=== PATIENT | female | born 1990 | race Caucasian/White ===

== ENCOUNTER 2017-11-25 10:03 | Emergency (ER) | payer OTHER ==
[2017-11-25 10:22] VITALS: RESP 18
[2017-11-25] MEDS ORDERED: SODIUM CHLORIDE 0.9% 1,000 ML IV ONE (11:12)
[2017-11-25 11:39] LABS: Basophils % (A) 0 %; Eosinophils % (A) 2 %; HCT 42.8 % (34.0-46.0); HGB 14.1 gm/dL (11.4-16.0); Lymphocytes % (A) 18 %; MCH 29.2 pg (25.0-35.0); MCHC 32.9 g/dL (31.0-37.0); MCV 88.7 fL (80.0-100.0); Monocytes % (A) 5 %; Neutrophils % (A) 75 %; Platelet Count 268 k/uL (150-450); RBC 4.82 m/uL (3.80-5.40); RDW 13.1 % (11.5-15.5); WBC 10.3 k/uL (3.8-10.6)
[2017-11-25 11:40] LABS: Eosinophils # (A) 0.2 k/uL (0-0.7); Lymphocytes # (A) 1.9 k/uL (1.0-4.8); Monocytes # (A) 0.5 k/uL (0-1.0); Neutrophils # (A) 7.7 k/uL (1.3-7.7)
[2017-11-25 11:53] LABS: ALT 26 U/L (9-52); AST 16 U/L (14-36); Albumin 3.5 g/dL (3.5-5.0); Alkaline Phosphatase 58 U/L (38-126); Anion Gap 7 mmol/L; Blood Urea Nitrogen 6 mg/dL (7-17); Calcium 8.8 mg/dL (8.4-10.2); Carbon Dioxide 20 mmol/L (22-30); Chloride 111 mmol/L (98-107); Glucose 78 mg/dL (74-99); Potassium 4.1 mmol/L (3.5-5.1); Sodium 138 mmol/L (137-145); Total Bilirubin 0.3 mg/dL (0.2-1.3); Total Protein 6.5 g/dL (6.3-8.2)
[2017-11-25 12:01] LABS: INR 0.9 (<1.2); Partial Thromboplastin Time 23.1 sec (22.0-30.0); Prothrombin Time 9.4 sec (9.0-12.0)
--- NOTE | 2017-11-25 12:10 | ED ---
Female Urogenital HPI - General Chief complaint: Vaginal Bleeding Stated complaint: Vaginal Bleeding-14 wks preg Time Seen by Provider: 11/25/17 10:52 Source: patient, RN notes reviewed, old records reviewed Mode of arrival: ambulatory Limitations: no limitations - History of Present Illness Initial comments: Patient is a 19-year-old feel since emergency department today with chief complaint of vaginal bleeding today. Patient reports that she had heavy bleeding and tetralogy woke up. She states she had some minor spotting afterwards. Patient reports that she has a high-risk at this time. Similarly 14 weeks . HYDRAULIC DREDGE OPERATOR is Dr. Day. - Related Data Home Medications Medication Instructions Recorded Confirmed Metoprolol Succinate (ER) [Toprol 50 mg PO HS 11/25/17 11/25/17 Xl] Gck-Shwz-Hdhko Acid 1 cap PO DAILY 11/25/17 11/25/17 [-U Capsule (formulary)] Allergies Allergy/AdvReac Type Severity Reaction Status Date / Time Penicillins AdvReac Rash/Hives Verified 11/25/17 10:28 Sulfa (Sulfonamide AdvReac Rash/Hives Verified 11/25/17 10:28 Antibiotics) Review of Systems ROS Statement: Those systems with pertinent positive or pertinent negative responses have been documented in the HPI. ROS Other: All systems not noted in ROS Statement are negative. Past Medical History Past Medical History: Hypertension History of Any Multi-Drug Resistant Organisms: None Reported Past Surgical History: No Surgical Hx Reported Past Psychological History: Anxiety Smoking Status: Current every day smoker Past Alcohol Use History: None Reported Past Drug Use History: None Reported General Exam - General Exam Comments Initial Comments: This is a 27-year-old female. Alert and oriented.Distress. Limitations: no limitations General appearance: alert, in no apparent distress Head exam: Present: atraumatic, normocephalic, normal inspection Eye exam: Present: normal appearance, PERRL, EOMI. Absent: scleral icterus, conjunctival injection, periorbital swelling ENT exam: Present: normal exam, mucous membranes moist Neck exam: Present: normal inspection. Absent: tenderness, meningismus, lymphadenopathy Respiratory exam: Present: normal lung sounds bilaterally. Absent: respiratory distress, wheezes, rales, rhonchi, stridor Cardiovascular Exam: Present: regular rate, normal rhythm, normal heart sounds. Absent: systolic murmur, diastolic murmur, rubs, gallop, clicks GI/Abdominal exam: Present: soft, normal bowel sounds. Absent: distended, tenderness, guarding, rebound, rigid External exam: Present: normal external exam Speculum exam: Present: normal speculum exam. Absent: erythema, vaginal discharge, cervical discharge, vaginal bleeding By manual exam: Present: normal by manual exam. Absent: cervical motion tenderness, adnexal tenderness Extremities exam: Present: normal inspection, full ROM, normal capillary refill. Absent: tenderness, pedal edema, joint swelling, calf tenderness Back exam: Present: normal inspection Neurological exam: Present: alert, oriented X3, CN II-XII intact Psychiatric exam: Present: normal affect, normal mood Course Vital Signs 11/25/17 11/25/17 10:20 14:09 Temperature 98.3 F 97.9 F Pulse Rate 91 61 Respiratory 18 18 Rate Blood Pressure 161/92 143/74 O2 Sat by Pulse 99 99 Oximetry Medical Decision Making - Medical Decision Making 19-year-old female presents today at 14 weeks chief complaint of vaginal bleeding today. Pelvic exam shows no significant bleeding at this time. Rh factor is positive. Ultrasound does show positive IUP measuring 15 weeks. Heart rate 142. No evidence of demise. No evidence of subchorionic bleed or hemorrhage. Unsure of where patient's bleeding could've came from. Again she has no bleeding at this time. We did discuss case with on -call HYDRAULIC DREDGE OPERATOR Dr. Story. SHe recommended follow-up with them in the office. Discussed return parameters. Patient understands treatment plan will comply. Return parameters were discussed. - Lab Data Result diagrams: 11/25/17 11:30 11/25/17 11:30 Lab Results 11/25/17 11/25/17 11/25/17 Range/Units 11:30 11:30 11:30 WBC 10.3 (3.8-10.6) k/uL RBC 4.82 (3.80-5.40) m/uL Hgb 14.1 (11.4-16.0) gm/dL Hct 42.8 (34.0-46.0) % MCV 88.7 (80.0-100.0) fL MCH 29.2 (25.0-35.0) pg MCHC 32.9 (31.0-37.0) g/dL RDW 13.1 (11.5-15.5) % Plt Count 268 (150-450) k/uL Neutrophils % 75 % Lymphocytes % 18 % Monocytes % 5 % Eosinophils % 2 % Basophils % 0 % Neutrophils # 7.7 (1.3-7.7) k/uL Lymphocytes # 1.9 (1.0-4.8) k/uL Monocytes # 0.5 (0-1.0) k/uL Eosinophils # 0.2 (0-0.7) k/uL Basophils # 0.0 (0-0.2) k/uL PT (9.0-12.0) sec INR (<1.2) APTT (22.0-30.0) sec Sodium 138 (137-145) mmol/L Potassium 4.1 (3.5-5.1) mmol/L Chloride 111 H (98-107) mmol/L Carbon Dioxide 20 L (22-30) mmol/L Anion Gap 7 mmol/L BUN 6 L (7-17) mg/dL Creatinine 0.50 L (0.52-1.04) mg/dL Est GFR (CKD-EPI)AfAm >90 (>60 ml/min/1.73 sqM) Est GFR (CKD-EPI)NonAf >90 (>60 ml/min/1.73 sqM) Glucose 78 (74-99) mg/dL Calcium 8.8 (8.4-10.2) mg/dL Total Bilirubin 0.3 (0.2-1.3) mg/dL AST 16 (14-36) U/L ALT 26 (9-52) U/L Alkaline Phosphatase 58 (38-126) U/L Total Protein 6.5 (6.3-8.2) g/dL Albumin 3.5 (3.5-5.0) g/dL HCG, Quant 12797.4 mIU/mL Urine Color Urine Appearance (Clear) Urine pH (5.0-8.0) Ur Specific [place] (1.001-1.035) Urine Protein (Negative) Urine Glucose (UA) (Negative) Urine Ketones (Negative) Urine Blood (Negative) Urine Nitrite (Negative) Urine Bilirubin (Negative) Urine Urobilinogen (<2.0) mg/dL Ur Leukocyte Esterase (Negative) Urine HCG, Qual (Not Detectd) Trichomonas Ag (Rapid) (Negative) Blood Type A Positive Blood Type Recheck No 11/25/17 11/25/17 11/25/17 Range/Units 11:30 13:18 13:18 WBC (3.8-10.6) k/uL RBC (3.80-5.40) m/uL Hgb (11.4-16.0) gm/dL Hct (34.0-46.0) % MCV (80.0-100.0) fL MCH (25.0-35.0) pg MCHC (31.0-37.0) g/dL RDW (11.5-15.5) % Plt Count (150-450) k/uL Neutrophils % % Lymphocytes % % Monocytes % % Eosinophils % % Basophils % % Neutrophils # (1.3-7.7) k/uL Lymphocytes # (1.0-4.8) k/uL Monocytes # (0-1.0) k/uL Eosinophils # (0-0.7) k/uL Basophils # (0-0.2) k/uL PT 9.4 (9.0-12.0) sec INR 0.9 (<1.2) APTT 23.1 (22.0-30.0) sec Sodium (137-145) mmol/L Potassium (3.5-5.1) mmol/L Chloride (98-107) mmol/L Carbon Dioxide (22-30) mmol/L Anion Gap mmol/L BUN (7-17) mg/dL Creatinine (0.52-1.04) mg/dL Est GFR (CKD-EPI)AfAm (>60 ml/min/1.73 sqM) Est GFR (CKD-EPI)NonAf (>60 ml/min/1.73 sqM) Glucose (74-99) mg/dL Calcium (8.4-10.2) mg/dL Total Bilirubin (0.2-1.3) mg/dL AST (14-36) U/L ALT (9-52) U/L Alkaline Phosphatase (38-126) U/L Total Protein (6.3-8.2) g/dL Albumin (3.5-5.0) g/dL HCG, Quant mIU/mL Urine Color Urine Appearance (Clear) Urine pH (5.0-8.0) Ur Specific [place] (1.001-1.035) Urine Protein (Negative) Urine Glucose (UA) (Negative) Urine Ketones (Negative) Urine Blood (Negative) Urine Nitrite (Negative) Urine Bilirubin (Negative) Urine Urobilinogen (<2.0) mg/dL Ur Leukocyte Esterase (Negative) Urine HCG, Qual Detected (Not Detectd) Trichomonas Ag (Rapid) Negative (Negative) Blood Type Blood Type Recheck 11/25/17 Range/Units 13:18 WBC (3.8-10.6) k/uL RBC (3.80-5.40) m/uL Hgb (11.4-16.0) gm/dL Hct (34.0-46.0) % MCV (80.0-100.0) fL MCH (25.0-35.0) pg MCHC (31.0-37.0) g/dL RDW (11.5-15.5) % Plt Count (150-450) k/uL Neutrophils % % Lymphocytes % % Monocytes % % Eosinophils % % Basophils % % Neutrophils # (1.3-7.7) k/uL Lymphocytes # (1.0-4.8) k/uL Monocytes # (0-1.0) k/uL Eosinophils # (0-0.7) k/uL Basophils # (0-0.2) k/uL PT (9.0-12.0) sec INR (<1.2) APTT (22.0-30.0) sec Sodium (137-145) mmol/L Potassium (3.5-5.1) mmol/L Chloride (98-107) mmol/L Carbon Dioxide (22-30) mmol/L Anion Gap mmol/L BUN (7-17) mg/dL Creatinine (0.52-1.04) mg/dL Est GFR (CKD-EPI)AfAm (>60 ml/min/1.73 sqM) Est GFR (CKD-EPI)NonAf (>60 ml/min/1.73 sqM) Glucose (74-99) mg/dL Calcium (8.4-10.2) mg/dL Total Bilirubin (0.2-1.3) mg/dL AST (14-36) U/L ALT (9-52) U/L Alkaline Phosphatase (38-126) U/L Total Protein (6.3-8.2) g/dL Albumin (3.5-5.0) g/dL HCG, Quant mIU/mL Urine Color Colorless Urine Appearance Clear (Clear) Urine pH 7.0 (5.0-8.0) Ur Specific [place] 1.005 (1.001-1.035) Urine Protein Negative (Negative) Urine Glucose (UA) Negative (Negative) Urine Ketones Negative (Negative) Urine Blood Negative (Negative) Urine Nitrite Negative (Negative) Urine Bilirubin Negative (Negative) Urine Urobilinogen <2.0 (<2.0) mg/dL Ur Leukocyte Esterase Negative (Negative) Urine HCG, Qual (Not Detectd) Trichomonas Ag (Rapid) (Negative) Blood Type Blood Type Recheck - Radiology Data Radiology results: report reviewed ultrasound shows a single IUP measuring 15 weeks and 0 days. Heart rate of 142. Estimated delivery date is 05/19/2018. No evidence of subchorionic hemorrhage or bleeding. Disposition Clinical Impression: Abnormal vaginal bleeding, 15 weeks gestation of Disposition: HOME SELF-CARE Condition: Good Instructions: Placenta Previa (ED) Additional Instructions: Patient is follow-up with Dr. Day on Tuesday. Return to the emergency department if any alarming signs or symptoms occur. Patient should have no heavy lifting. Pelvic rest. Return to emergency department if any alarming signs or symptoms occur. Is patient prescribed a controlled substance at d/c from ED?: No Referrals: None,Stated [Primary Care Provider] - 1-2 days Wicho Kruger DO [Doctor of Osteopathic Medicine] - 1-2 days Time of Disposition: 13:51
[2017-11-25 12:47] LABS: HCG,Quantitative Serum 27318.4 mIU/mL
--- NOTE | 2017-11-25 13:03 | US ---
EXAMINATION TYPE: US OB >= 14 wk fetus DATE OF EXAM: 11/25/2017 COMPARISON: None CLINICAL HISTORY: PainBleeding and cramping x 1 day, 5, para 4 TECHNIQUE: Transabdominal (TA) GESTATIONAL AGE / DATING Physician Established: (14 weeks/2 days) EDC: 05/24/2018 Dates by LMP: (14 weeks/2 days) EDC: 05/24/2018 Dates by First Scan: No previous here Dates by Current Scan: (15 weeks/0 days) EDC: 05/19/2018 SURVEY IUP: Single PLACENTA: Fundal PREVIA: No Previa WOJCIECH: 12.4 cm Normal CERVICAL LENGTH (transabdominal: norm > 3.0cm): 3.5 cm BIOMETRY PRESENTATION: Breech LIE: Transverse with head maternal Left BPD: 2.7 cm 14 weeks / 6 days HC: 9.8 cm 14 weeks / 4 days AC: 8.8 cm 15 weeks / 0 days FL: 1.5 cm 14 weeks / 3 days ESTIMATED WEIGHT IN GRAMS: 105.1 grams ESTIMATED WEIGHT IN LBS/OZ: 0 lbs. 4 oz. WEIGHT PERCENTAGE BASED ON ESTABLISHED DATES: 68% HC/AC: 1.11 Normal FL/AC: 17.11 HEART RATE: 142 bpm RHYTHM: Normal MATERNAL WALL MEASUREMENT: 5.7 cm from skin to anterior uterine wall (if exam limited due to body hab itus). Viable single IUP measuring 15 weeks 0 days with a heart rate of 142bpm and an estimated delivery kaylee e of 05/19/2018. IMPRESSION: Single viable intrauterine .
[2017-11-25 13:40] LABS: Appearance,Urine Clear (Clear); Bilirubin,Urine Negative (Negative); Blood,Urine Negative (Negative); Color,Urine Colorless; Glucose,Urine (UA) Negative (Negative); Ketones,Urine Negative (Negative); Leukocyte Esterase,Urine Negative (Negative); Nitrite,Urine Negative (Negative); Protein,Urine Negative (Negative); Specific Gravity,Urine 1.005 (1.001-1.035); Urobilinogen,Urine <2.0 mg/dL (<2.0)
[2017-11-25 14:10] VITALS: BP 143/74; PULSE 61; TEMP 97.9
[2017-11-26 14:39] LABS: C. trachomatis,PCR Negative (Neg,Equiv); Chlamydia trachomatis Source Vagina; N. gonorrhoeae,PCR Negative (Neg,Equiv); Neisseria Source Vagina
== END 2017-11-25 14:10 | disposition home or self-care (01) ==
LOC: EC 10:03
DX: O20.9 Hemorrhage in early pregnancy, unspecified (principal); I10 Essential (primary) hypertension; F17.200 Nicotine dependence, unspecified, uncomplicated; Z3A.15 15 weeks gestation of pregnancy; Z67.10 Type A blood, Rh positive; Z79.899 Other long term (current) drug therapy; Z88.0 Allergy status to penicillin; Z88.2 Allergy status to sulfonamides
CPT/HCPCS: 36415; 76805; 80053; 81003; 81025; 84702; 85025; 85610; 85730; 86900; 86901; 87070; 87205; 87491; 87591; 87808; 96360; 96361; 99284

== ENCOUNTER → 2017-12-30 | Outpatient (CLI) | payer OTHER | LOC: LABWHC1 09:49 | PROVIDERS: ATTEND Obstetrics & Gynecology Maternal & Fetal Medicine | DX: Z34.81 Encounter for supervision of other normal pregnancy, first trimester (principal); Z3A.00 Weeks of gestation of pregnancy not specified | CPT/HCPCS: 36415; 82105; 82677; 84702; 86336 ==

== ENCOUNTER 2018-03-20 12:52 | Outpatient (CLI) | payer OTHER ==
[2018-03-20 13:34] LABS: Creatinine,Urine Random 82.7 mg/dL
[2018-03-20 14:28] LABS: Appearance,Urine Clear (Clear); Bilirubin,Urine Negative (Negative); Blood,Urine Negative (Negative); Color,Urine Yellow; Glucose,Urine (UA) Negative (Negative); Ketones,Urine 1+ (Negative); Leukocyte Esterase,Urine Small (Negative); Mucus,Urine Occasional /hpf; Nitrite,Urine Negative (Negative); PH, Urine 6.5 (5.0-8.0); Protein,Urine Negative (Negative); RBC,Urine 1 /hpf (0-5); Specific Gravity,Urine 1.012 (1.001-1.035); Squamous Epithelial Cell,Urine 1 /hpf (0-4); Urobilinogen,Urine <2.0 mg/dL (<2.0); WBC,Urine 1 /hpf (0-5)
[2018-03-20 14:33] LABS: Basophils % (A) 0 %; Eosinophils # (A) 0.1 k/uL (0-0.7); Eosinophils % (A) 1 %; HCT 37.6 % (34.0-46.0); HGB 12.3 gm/dL (11.4-16.0); Lymphocytes # (A) 1.7 k/uL (1.0-4.8); Lymphocytes % (A) 14 %; MCH 29.2 pg (25.0-35.0); MCHC 32.7 g/dL (31.0-37.0); MCV 89.4 fL (80.0-100.0); Mean Platelet Volume 7.2; Monocytes # (A) 0.5 k/uL (0-1.0); Monocytes % (A) 4 %; Neutrophils # (A) 9.8 k/uL (1.3-7.7); Neutrophils % (A) 80 %; Platelet Count 250 k/uL (150-450); RBC 4.21 m/uL (3.80-5.40); RDW 13.3 % (11.5-15.5); WBC 12.3 k/uL (3.8-10.6)
[2018-03-20 14:49] LABS: ALT 30 U/L (9-52); AST 22 U/L (14-36); Blood Urea Nitrogen 6 mg/dL (7-17); LDH 340 U/L (313-618); Uric Acid 3.5 mg/dL (3.7-7.4)
[2018-03-20 15:06] VITALS: RESP 16; TEMP 97.1
[2018-03-20 15:08] VITALS: BP 123/74; PULSE 76
--- NOTE | 2018-03-30 07:43 | P.MSEPDOC ---
Presenting Problems - Arrival Data Date of Arrival on Unit: 03/20/18 Time of Arrival on Unit: 12:52 Mode of Transport: Ambulatory - Complaint OB-Reason for Admission/Chief Complaint: PIH Comment: sent over from office for PI work up Medical History - Information : 5 Para: 4 Term: 4 : 0 Abortions: Spontaneous or Elective: 0 Number of Living Children: 4 - Gestational Age Gestational Age by TAY (wks/days): 30 Weeks and 5 Days - History Complications: Smoker Review of Systems - Review of Systems Constitutional: No problems Breast: No problems ENT: No problems Cardiovascular: No problems Respiratory: No problems Gastrointestinal: No problems Genitourinary: No problems Musculoskeletal: No problems Neurological: No problems Skin: No problems Vital Signs - Temperature Temperature: 97.1 F Temperature Source: Temporal Artery Scan - Pulse Right Pulse Rate: 76 Pulse Assessment Method: Automatic Cuff - Respirations Respiratory Rate: 16 Oxygen Delivery Method: Room Air O2 Sat by Pulse Oximetry: 98 - Blood Pressure Right Arm Blood Pressure: 123/74 Blood Pressure Mean: 90 Blood Pressure Source: Automatic Cuff Medical Screen Scoring (Pre) - Cervical Exam Dilation: Exam Deferred Effacement: Exam Deferred Membranes: Intact - Uterine Contractions Frequency: N/A Duration: N/A Intensity: N/A - Maternal Vital Signs Maternal Temperature: N/A Maternal Blood Pressure: N/A Signs of Preeclampsia: N/A Maternal Respirations: N/A - Pain Assessment Pain Location and Character: Back Pain Scale Used: Numeric (1 - 10) Pain Intensity: 3 Pain Management Goal: 0 Pain Description: *Acute, Aching Pain Frequency: Intermittent Pain Duration Units: Minutes Pain Behavior: Vocalization Pain Aggravating Factors: Activity - Maternal Trauma Maternal Trauma: N/A - Assessment Baseline FHR: 125 Heart Rate - NICHD Category: Category I (Normal) = 0 NST: Reactive Position: N/A Station: N/A - Total Score Total Score (Pre): 0 - Level of Risk Level of Risk: Low (0-5) Physician Notification (Pre) - Physician Notified Physician Notified Date: 03/20/18 Physician Notified Time: 14:55 Physician/Practitioner Notifed:: Dr. Kruger Spoke With: Dr. Kruger New Order Received: Yes (discharge home with follow up insturctions.) - Notification Comment Comment: Pt to return with worsening symptoms or concerns. Keep next appointment in off on 03-29-2018. Medical Screen Scoring (Post) - Cervical Exam Dilation: Exam Deferred Effacement: Exam Deferred Membranes: Intact - Uterine Contractions Frequency: N/A Duration: N/A Intensity: N/A - Maternal Vital Signs Maternal Temperature: N/A Maternal Blood Pressure: N/A Signs of Preeclampsia: N/A Maternal Respirations: N/A - Pain Assessment Pain Location and Character: Back Pain Scale Used: Numeric (1 - 10) Pain Intensity: 3 Pain Management Goal: 0 Pain Description: *Acute, Aching Pain Frequency: Intermittent Pain Duration Units: Minutes Pain Behavior: Vocalization Non-Pharmacological Interventions: Position/Reposition - Maternal Trauma Maternal Trauma: N/A - Assessment Heart Rate: 120 Heart Rate - NICHD Category: Category I (Normal) = 0 NST: Reactive Position: N/A Station: N/A - Total Score Total Score (Post): 0 - Post Treatment Level of Risk Post Treatment Level of Risk: N/A Physician Notification (Post) - Physician Notified Physician Notified Date: 03/20/18 Physician Notified Time: 14:55 Physician/Practitioner Notified:: Dr. Kruger Spoke With: Dr. Kruger New Order Received: Yes (home with follow up instructions) - Notification Comment Comment: pt to return if symptoms worsen or with concerns. Keep next appointment in office on 03/29/2018. Disposition - Disposition OB Disposition: Discharge to home Discharge Date: 03/20/18 Discharge Time: 14:55 I agree with the RN Medical Screening Exam: Yes Risk & Benefit of care provided described in d/c instruction: Yes Diagnosis: GESTATIONAL HTN W/O SIGNIFICANT PROTEINURIA, THIRD TRIMESTER
== END 2018-03-20 14:55 | disposition home or self-care (01) ==
LOC: FBPOP 12:52
PROVIDERS: ATTEND Obstetrics & Gynecology
DX: O13.3 Gestational [pregnancy-induced] hypertension without significant proteinuria, third trimester (principal); O99.333 Smoking (tobacco) complicating pregnancy, third trimester; Z3A.30 30 weeks gestation of pregnancy
CPT/HCPCS: 59025; 82570; 84156; 82565; 83615; 84450; 84460; 84520; 84550; 85025; 81001; G0463; 99215

== ENCOUNTER 2018-04-14 14:57 | Outpatient (CLI) | payer OTHER ==
[2018-04-14 15:24] VITALS: RESP 16; TEMP 97.9
[2018-04-14 15:27] LABS: Appearance,Urine Clear (Clear); Bilirubin,Urine Negative (Negative); Blood,Urine Negative (Negative); Color,Urine Light Yellow; Glucose,Urine (UA) Negative (Negative); Ketones,Urine Negative (Negative); Leukocyte Esterase,Urine Negative (Negative); Nitrite,Urine Negative (Negative); PH, Urine 6.5 (5.0-8.0); Protein,Urine Negative (Negative); Urobilinogen,Urine <2.0 mg/dL (<2.0)
[2018-04-14 15:49] LABS: Basophils % (A) 0 %; Eosinophils # (A) 0.1 k/uL (0-0.7); Eosinophils % (A) 1 %; HGB 12.7 gm/dL (11.4-16.0); Lymphocytes # (A) 1.9 k/uL (1.0-4.8); Lymphocytes % (A) 14 %; MCH 30.4 pg (25.0-35.0); MCHC 34.3 g/dL (31.0-37.0); MCV 88.6 fL (80.0-100.0); Mean Platelet Volume 7.9; Monocytes # (A) 0.5 k/uL (0-1.0); Monocytes % (A) 3 %; Neutrophils # (A) 11.3 k/uL (1.3-7.7); Neutrophils % (A) 81 %; Platelet Count 201 k/uL (150-450); RBC 4.17 m/uL (3.80-5.40); RDW 13.5 % (11.5-15.5); WBC 13.9 k/uL (3.8-10.6)
[2018-04-14 15:50] LABS: ALT 18 U/L (9-52); AST 14 U/L (14-36); Blood Urea Nitrogen 9 mg/dL (7-17); LDH 344 U/L (313-618); Uric Acid 3.3 mg/dL (3.7-7.4)
[2018-04-14 16:05] VITALS: BP 138/78; PULSE 84
--- NOTE | 2018-05-03 16:23 | P.MSEPDOC ---
Presenting Problems - Arrival Data Date of Arrival on Unit: 04/14/18 Time of Arrival on Unit: 14:57 Mode of Transport: Ambulatory Vital Signs - Temperature Temperature: 97.9 F Temperature Source: Temporal Artery Scan - Pulse Right Brachial Pulse Rate: 84 Pulse Assessment Method: Automatic Cuff - Respirations Respiratory Rate: 16 Oxygen Delivery Method: Room Air O2 Sat by Pulse Oximetry: 98 - Blood Pressure Right Arm Blood Pressure: 138/78 Blood Pressure Mean: 98 Blood Pressure Source: Automatic Cuff Disposition - Disposition Discharge Date: 04/14/18 Discharge Time: 16:11 I agree with the RN Medical Screening Exam: Yes Risk & Benefit of care provided described in d/c instruction: Yes Diagnosis: GESTATIONAL HTN W/O SIGNIFICANT PROTEINURIA, THIRD TRIMESTER
== END 2018-04-14 16:11 | disposition home or self-care (01) ==
LOC: FBPOP 14:57
PROVIDERS: ATTEND Obstetrics & Gynecology
DX: O13.3 Gestational [pregnancy-induced] hypertension without significant proteinuria, third trimester (principal); Z3A.00 Weeks of gestation of pregnancy not specified
CPT/HCPCS: 59025; 81003; 82565; 83615; 84450; 84460; 84520; 84550; 85025

== ENCOUNTER 2018-04-26 14:27 | Outpatient (CLI) | payer OTHER ==
[2018-04-26 15:02] VITALS: BP 161/89; PULSE 92; RESP 16; TEMP 98.1
[2018-04-26 15:10] LABS: Basophils % (A) 0 %; Eosinophils # (A) 0.1 k/uL (0-0.7); Eosinophils % (A) 1 %; HCT 38.9 % (34.0-46.0); HGB 12.8 gm/dL (11.4-16.0); Lymphocytes # (A) 1.6 k/uL (1.0-4.8); Lymphocytes % (A) 12 %; MCH 28.7 pg (25.0-35.0); MCHC 32.8 g/dL (31.0-37.0); MCV 87.5 fL (80.0-100.0); Mean Platelet Volume 7.6; Monocytes # (A) 0.5 k/uL (0-1.0); Monocytes % (A) 4 %; Neutrophils # (A) 11.4 k/uL (1.3-7.7); Neutrophils % (A) 82 %; Platelet Count 235 k/uL (150-450); RBC 4.45 m/uL (3.80-5.40); RDW 13.5 % (11.5-15.5); WBC 13.9 k/uL (3.8-10.6)
[2018-04-26 15:11] LABS: ALT 22 U/L (9-52); AST 19 U/L (14-36); Blood Urea Nitrogen 8 mg/dL (7-17); LDH 486 U/L (313-618); Uric Acid 4.2 mg/dL (3.7-7.4)
[2018-04-26 15:38] LABS: Amorphous Sediment,Urine Rare /hpf; Appearance,Urine Cloudy (Clear); Bacteria,Urine Rare /hpf; Bilirubin,Urine Negative (Negative); Blood,Urine Negative (Negative); Color,Urine Yellow; Glucose,Urine (UA) Negative (Negative); Hyaline Casts,Urine 3 /lpf (0-2); Ketones,Urine Negative (Negative); Leukocyte Esterase,Urine Moderate (Negative); Mucus,Urine Rare /hpf; Nitrite,Urine Negative (Negative); PH, Urine 6.5 (5.0-8.0); Protein,Urine Trace (Negative); RBC,Urine 1 /hpf (0-5); Specific Gravity,Urine 1.011 (1.001-1.035); Squamous Epithelial Cell,Urine 12 /hpf (0-4); Urobilinogen,Urine <2.0 mg/dL (<2.0); WBC,Urine 16 /hpf (0-5)
--- NOTE | 2018-04-26 17:49 | PN ---
PROGRESS NOTE DATE OF DICTATION: 04/26/2017 The patient was seen and evaluated in Triage. Her blood pressures today have been mildly elevated over what they have been. She has had several blood pressures in the 160/80 and 130s to 140s over 90s range. Pre-eclamptic labs were ordered. She has returned all of those labs as normal. She is only taking 50 mg of metoprolol extended- release and 25 of hydralazine 3 times a day. We will therefore increase her metoprolol to 100 mg a day and see her on Tuesday for repeat blood pressure check and see how she is feeling, with plans to determine delivery time frame at that time. All questions were answered for her at this time. She is well aware to return for any severe headaches, epigastric pain or visual changes. Otherwise, her heart tracings revealed a category 1 tracing, and she has had no contractions at this time. ASSESSMENT: Chronic hypertension with mild worsening of the hypertension. PLAN: Increase metoprolol dose. MMODL / IJN: [id number] /
== END 2018-04-26 17:00 | disposition home or self-care (01) ==
LOC: FBPOP 14:27
PROVIDERS: ATTEND Obstetrics & Gynecology
DX: O10.913 Unspecified pre-existing hypertension complicating pregnancy, third trimester (principal); Z3A.36 36 weeks gestation of pregnancy
CPT/HCPCS: 59025; 81001; 82565; 82570; 83615; 84156; 84450; 84460; 84520; 84550; 85025

== ENCOUNTER 2018-05-03 06:30 | Inpatient (IN) | payer OTHER ==
[2018-05-03] MEDS ORDERED: CARBOPROST TROMETHAMINE 250 MCG/ML 1 ML AMP IM PRN (06:53)
[2018-05-03] MEDS ORDERED: OXYTOCIN 10 UNIT/ML 1 ML VIAL IM PRN (06:53)
[2018-05-03] MEDS ORDERED: METHYLERGONOVINE 0.2 MG/ML 1 ML AMP IM PRN (06:53)
[2018-05-03] MEDS ORDERED: TERBUTALINE 1 MG/ML VIAL SQ PRN (06:53)
[2018-05-03] MEDS ORDERED: LIDOCAINE 0.5% (PF) 5 MG/ML (50 ML SDV) SQ PRN (06:53)
[2018-05-03] MEDS: LACTATED RINGERS 1,000 ML IV SCH ×3 (07:01→17:27)
[2018-05-03] MEDS: OXYTOCIN 20 UNITS/1000 ML NS 1,000 ML IV SCH ×2 (07:19→19:14)
[2018-05-03 07:23] LABS: Basophils % (A) 0 %; Eosinophils # (A) 0.2 k/uL (0-0.7); Eosinophils % (A) 1 %; HCT 40.1 % (34.0-46.0); HGB 13.6 gm/dL (11.4-16.0); Lymphocytes # (A) 1.6 k/uL (1.0-4.8); Lymphocytes % (A) 12 %; MCH 29.8 pg (25.0-35.0); MCHC 33.8 g/dL (31.0-37.0); MCV 88.2 fL (80.0-100.0); Mean Platelet Volume 8.2; Monocytes # (A) 0.5 k/uL (0-1.0); Monocytes % (A) 4 %; Neutrophils # (A) 10.7 k/uL (1.3-7.7); Neutrophils % (A) 81 %; Platelet Count 233 k/uL (150-450); RBC 4.55 m/uL (3.80-5.40); RDW 13.7 % (11.5-15.5); WBC 13.2 k/uL (3.8-10.6)
[2018-05-03 07:28] VITALS: RESP 16; BMI 42.3
[2018-05-03] MEDS: BUTORPHANOL 1 MG/ML 1 ML VIAL IV PRN ×2 (11:47→14:22)
[2018-05-03] MEDS ORDERED: fentaNYL (PF) 50 MCG/ML 5 ML AMP ONE (16:50)
[2018-05-03] MEDS ORDERED: ROPIVACAINE 5MG/ML 20ML VIAL ONE (16:50)
[2018-05-03] MEDS ORDERED: SODIUM CHLORIDE 0.9% 100 ML BAG ONE (16:50)
[2018-05-03] MEDS ORDERED: HYDROCORTISONE 2.5% RECTAL CREAM 30 GM TUBE RECTAL PRN (18:19)
[2018-05-03] MEDS ORDERED: diphenhydrAMINE 25 MG CAP PO PRN (18:19)
[2018-05-03] MEDS ORDERED: ZOLPIDEM 5 MG TAB PO PRN (18:19)
[2018-05-03] MEDS ORDERED: diphenhydrAMINE 50 MG/ML 1 ML VIAL IVP PRN ×2 (18:19)
[2018-05-03] MEDS ORDERED: SIMETHICONE 80 MG CHEWABLE PO PRN (18:19)
[2018-05-03] MEDS ORDERED: WITCH HAZEL 1 EACH MED..PAD TOPICAL PRN (18:19)
[2018-05-03] MEDS ORDERED: BENZOCAINE/MENTHOL SPRAY 1 GM/SPRAY AEROSOL TOPICAL PRN (18:19)
[2018-05-03] MEDS ORDERED: LANOLIN CREAM 5 GM TUBE TOPICAL PRN (18:19)
[2018-05-03] MEDS ORDERED: diphenhydrAMINE 50 MG CAP PO PRN (18:19)
--- NOTE | 2018-05-03 18:22 | P.HPOB ---
History of Present Illness H&P Date: 05/03/18 Chief Complaint: Intrauterine Brixey term: Chronic hypertension Samantha is a 19-year-old at 37 weeks gestation who arrives for induction of labor due to chronic hypertension with worsening of symptoms. Over last several weeks she has required increasing doses of both her metoprolol and her hydralazine and due to same with concerns over potential for superimposed preeclampsia we are moving forward with delivery. Her Precis course has also been, complicated by polyhydramnios which was dilated diagnosed at approximately 28 weeks is been followed closed with multiple nonstress tests and been followed with maternal medicine. At this time she voices no complaints her blood pressures otherwise relatively stable 150/90. This consisted blood pressure for her through the latter part of the and we have not stroke to get it much lower than that due to concerns over perfusion for the baby. Pertinent labs include A+ blood type Rh antibody was negative, rubella immune, hepatitis B surface antigen as well as RPR and GBS were all negative. On physical exam this is an obese female whose HEENT is unremarkable. Heart regular, lungs clear, extremities are without pain. Abdomen is gravid. Category 1 tracing is noted. She was dilated to 1 cm 50% effaced and -3 station. Artificial rupture membranes was performed and clear fluid is noted. She anticipates use of an epidural for analgesia. Past Medical History Past Medical History: Hypertension History of Any Multi-Drug Resistant Organisms: None Reported Past Surgical History: No Surgical Hx Reported Past Anesthesia/Blood Transfusion Reactions: No Reported Reaction Additional Past Anesthesia/Blood Transfusion Reaction / Comment(s): states needed big tube for intubation during endoscopy Past Psychological History: Anxiety, Depression Smoking Status: Current every day smoker Past Alcohol Use History: None Reported Past Drug Use History: None Reported - Past Family History Father Family Medical History: Hypertension Medications and Allergies Home Medications Medication Instructions Recorded Confirmed Type Metoprolol Succinate (ER) [Toprol 50 mg PO HS 11/25/17 05/03/18 History Xl] Wvx-[id number]-Affpy Acid 1 cap PO DAILY 11/25/17 05/03/18 History [-U Capsule (formulary)] hydrALAZINE HCL 25 mg PO TID 03/20/18 05/03/18 History Allergies Allergy/AdvReac Type Severity Reaction Status Date / Time Penicillins AdvReac Rash/Hives Verified 05/03/18 06:49 Sulfa (Sulfonamide AdvReac Rash/Hives Verified 05/03/18 06:49 Antibiotics) Exam Osteopathic Statement: *. No significant issues noted on an osteopathic structural exam other than those noted in the History and Physical/Consult. Vital Signs Temp Pulse Resp BP 05/03/18 07:20 97.6 F 80 16 151/89 Intake and Output 05/03/18 05/03/18 05/03/18 06:59 14:59 22:59 Intake Total 1000 Balance 1000 Intake: Intake, IV Titration 1000 Amount Lactated Ringers 1,000 ml 1000 @ 125 mls/hr IV .Q8H [facility] Rx#:[id number] Other: Weight 108.227 kg - OBG Physical Exam Breast: both: normal (no masses) Abdomen: bowel sounds normal, no diffuse tenderness, no bruit present, no guarding noted, no hepatomegaly, no splenomegaly, no mass Vulva: both: normal Vagina: normal moisture, no discharge Cervix: no lesion, no discharge Uterus: normal size, normal contour Adnexa: both: normal Anus/Rectum: normal perianal skin, no rectal mass, no hemorrhoids, heme negative Results Result Diagrams: 05/03/18 07:05 Abnormal Lab Results - Last 24 Hours (Table) 05/03/18 Range/Units 07:05 WBC 13.2 H (3.8-10.6) k/uL Neutrophils # 10.7 H (1.3-7.7) k/uL
--- NOTE | 2018-05-03 18:24 | P.PROBDLV ---
Vaginal Delivery Note - . Vaginal Delivery Note: Samantha progressed to complete and pushed with spontaneous vaginal delivery of a viable male over an intact perineum. Following delivery of the head a nuchal cord 2 was noted and baby was delivered through the nuchal cord without difficulty. Interim posterior shoulders were easily delivered followed by the remainder the baby. Mouth nares were then bulb suctioned and baby was placed on mother's abdomen where the umbilical cord was allowed to pulsate for 40 seconds prior to cutting. Nursery personnel was present to assume care. Placenta was then delivered intact and Pitocin was added to the IV. scores were 7 and 8 at one and 5 minutes respectfully in the weight is pending. Both mother and baby currently are stable following delivery. We will resume her antihypertensive medications now.
[2018-05-03] MEDS: METOPROLOL SUCCINATE (ER) 100 MG TAB.ER.24H PO SCH (19:16)
[2018-05-03] MEDS: SENNOSIDES-DOCUSATE SODIUM 1 EACH TAB PO SCH (19:16)
[2018-05-03] MEDS: IBUPROFEN 600 MG TAB PO PRN (22:25)
[2018-05-04] MEDS: ACETAMINOPHEN TAB 325 MG TAB PO PRN ×2 (01:19→12:26)
[2018-05-04] MEDS: IBUPROFEN 600 MG TAB PO PRN ×3 (04:00→18:21)
[2018-05-04] MEDS: SENNOSIDES-DOCUSATE SODIUM 1 EACH TAB PO SCH ×2 (08:05→20:03)
--- NOTE | 2018-05-04 08:20 | P.DS ---
Providers Date of admission: 05/03/18 06:39 Expected date of discharge: 05/04/18 Attending physician: Wicho Kruger Primary care physician: [facility] Course: Samantha is doing very well day 1. She is ambulating, voiding, tolerating her diet. Other than pain in her back from the epidural placement she is doing very well and voices no complaints. Vital signs are currently stable with minimal blood pressure elevation 150/90 which is consistent number for her. She will follow up with Dr. Meyers later this week or next week for reevaluation. She will follow up in our office in the next 7 days for repeat blood pressure check as well. Otherwise her heart is regular, lungs are clear, extremities without pain. Abdomen soft uterus is firm and lochia is reported to be light. Prescription for Motrin was sent to the pharmacy and a prescription for breast pump was provided. All other questions are answered for her at this time. Assessment day 1. Plan discharged home follow up with me in 6 weeks. Patient Condition at Discharge: Good Plan - Discharge Summary New Discharge Prescriptions: New Ibuprofen [Motrin] 600 mg PO Q6HR PRN #30 tab PRN Reason: Pain No Action Metoprolol Succinate (ER) [Toprol Xl] 50 mg PO HS [id number] Acid [-U Capsule (formulary)] 1 cap PO DAILY hydrALAZINE HCL 25 mg PO TID Discharge Medication List Metoprolol Succinate (ER) [Toprol Xl] 50 mg PO HS 11/25/17 [History] [id number]-Lytr-Ntmkv Acid [-U Capsule (formulary)] 1 cap PO DAILY [History] hydrALAZINE HCL 25 mg PO TID 03/20/18 [History] Ibuprofen [Motrin] 600 mg PO Q6HR PRN #30 tab 05/04/18 [Rx] Follow up Appointment(s)/Referral(s): Wicho Kruger DO [Doctor of Osteopathic Medicine] - 6 Weeks Jojo Meyers MD [STAFF PHYSICIAN] - 1 Week Activity/Diet/Wound Care/Special Instructions: No heavy lifting, limit stairs and driving, and pelvic rest. If any high temperatures, heavy bleeding, or severe pain call my office. Should she have any severe headaches, epigastric pain, visual changes or other problems return to the emergency room for preeclamptic workup. Signs or symptoms of preeclampsia today. She will follow up with Dr. Meyers the next week to discuss blood pressure treatment options moving forward. Discharge Disposition: HOME SELF-CARE
[2018-05-04] MEDS: METOPROLOL SUCCINATE (ER) 100 MG TAB.ER.24H PO SCH (08:53)
[2018-05-04 15:55] VITALS: BP 136/77; PULSE 74; TEMP 97.3
== END 2018-05-04 19:45 | disposition home or self-care (01) | DRG 807 ==
LOC: 4FBP 06:39
PROVIDERS: ADMIT Obstetrics & Gynecology; ATTEND Obstetrics & Gynecology
PROC: 10E0XZZ Delivery of Products of Conception, External Approach (ICD-10-PCS; principal; 2018-05-03)
PROC: 10907ZC Drainage of Amniotic Fluid, Therapeutic from Products of Conception, Via Natural or Artificial Opening (ICD-10-PCS; 2018-05-03)
PROC: 3E033VJ Introduction of Other Hormone into Peripheral Vein, Percutaneous Approach (ICD-10-PCS; 2018-05-03)
PROC: 00HU33Z Insertion of Infusion Device into Spinal Canal, Percutaneous Approach (ICD-10-PCS; 2018-05-03)
PROC: 3E0R3BZ Introduction of Anesthetic Agent into Spinal Canal, Percutaneous Approach (ICD-10-PCS; 2018-05-03)
DX: O10.92 Unspecified pre-existing hypertension complicating childbirth (principal); Z37.0 Single live birth; O40.3XX0 Polyhydramnios, third trimester, not applicable or unspecified; E66.9 Obesity, unspecified; O99.344 Other mental disorders complicating childbirth; O99.334 Smoking (tobacco) complicating childbirth; F41.9 Anxiety disorder, unspecified; O69.81X0 Labor and delivery complicated by cord around neck, without compression, not applicable or unspecified; F32.9 Major depressive disorder, single episode, unspecified; F17.200 Nicotine dependence, unspecified, uncomplicated; O99.214 Obesity complicating childbirth; Z3A.37 37 weeks gestation of pregnancy; Z88.0 Allergy status to penicillin; Z88.2 Allergy status to sulfonamides; Z79.899 Other long term (current) drug therapy; Z82.49 Family history of ischemic heart disease and other diseases of the circulatory system
CPT/HCPCS: 85025; 86850; 86900; 86901; 88307

== ENCOUNTER → 2023-09-02 | Outpatient (CLI) | payer OTHER ==
--- NOTE | 2023-09-04 17:08 | US ---
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 MEASUREMENTS: RENAL SIZE: Right Kidney: 11.9 x 6.0 x 5.6 cm Left Kidney: 13.9 x 6.4 x 6.6 cm Right Kidney: No hydronephrosis or lesions seen Left Kidney: Enlarged Abd Aorta: Appears wnl RESISTANCE INDEX Right: 0.67 Left: 0.68 RA/AO RATIO (< 3.5 ) Right: 1.9 Left: 1.9 RENAL ARTERY VELOCITY ( < 180 cm/s) Right: 206.3 cm/s Left: 196.7 cm/s Dough Mixer Notes: Elevated velocities within bilateral renal arteries. Left kidney appears enlarged. IMPRESSION: 1. Elevated bilateral renal artery velocities with normal renal artery to aorta ratios and resistive indices bilaterally. Further evaluation with CTA abdomen is recommended to assess for renal artery s tenosis. 2. Left kidney appears enlarged compared to the right.
== END | disposition home or self-care (01) ==
LOC: RADUSWWP 07:13
PROVIDERS: ATTEND Family Medicine
DX: N28.81 Hypertrophy of kidney (principal); I10 Essential (primary) hypertension; R80.9 Proteinuria, unspecified
CPT/HCPCS: 93975